=== PATIENT | male | born 1990 | race Caucasian/White ===

== ENCOUNTER 2024-03-14 09:16 | Emergency (ER) | payer OTHER, SELFPAY ==
--- NOTE | 2024-03-14 09:17 | ED.EYEPROB ---
HPI - Eye Problem General Chief complaint: Eye Problems Stated complaint: R EYE REDNESS Time Seen by Provider: 03/14/24 09:17 Source: patient Mode of arrival: ambulatory Limitations: no limitations History of Present Illness HPI Narrative: Joe is a 34-year-old male patient presenting to the clinic today with complaints right eye redness x1 day. He denies any known injury to the right eye. Denies any blurry vision. States that there stinging in the eye with some clear watering. He denies having his eyes matted shut this morning or noting any purulent discharge. No fever or chills. No URI symptoms Related Data Allergies Allergy/AdvReac Type Severity Reaction Status Date / Time No Known Allergies Allergy Mild Verified 03/14/24 09:24 Review of Systems Review of Systems: Pertinent positives per HPI. Patient denies any fever, chills, rash, headache, visual changes, dizziness, cough, runny nose, sore throat, shortness of breath, chest pain, palpitations, nausea, vomiting, diarrhea, constipation, abdominal pain, or any urinary issues. PMFSH Family History Family History Father Hypertension Mother Hypertension Cerebrovascular accident, Onset Age: 46 Family history of diabetes mellitus in first degree relative Sibling Patient's sister is in good health Grandparent Malignant neoplasm of prostate, Onset Age: 70 Diabetes mellitus Social History Social History Social History: 03/08/24 Declined [facility] Smoking status: Current every day smoker Alcohol intake: current Comments At the time of my signature, I reviewed and agree with the nursing past medical, surgical, social, and family history. There is no relevant family history pertinent to the patient complaint. Exam Narrative: General: Well-developed, well nourished, in no apparent distress Head: Normocephalic, atraumatic Eyes: Pupils equally round and reactive to light bilaterally, EOM intact, left sclera and conjunctive clear, right sclera and conjunctiva injected, no discharge, lids normal Ears: TMs intact and clear, ear canals clear, no drainage, grossly hearing normal. Nose: Nares patent, no discharge, no inflammation, no sinus tenderness. Mouth: Oropharynx without lesions or masses, good dentition, MMM. Neck: Supple, trachea midline, no enlargement of anterior or posterior cervical nodes, no thyroid masses or goiter palpable. Cardio: Regular rate and rhythm, s1 and s2 normal, no murmur appreciated. Resp: Clear to auscultation bilaterally anteriorly and posteriorly, no rhonchi, rales, wheezing or rubs Course Course Emergency Course: Portions of this record may have been created with voice recognition software. Level of Care: Express Care Visit Vital Signs Vital signs: Vital signs reviewed Procedures Other Procedure Procedure 1: Other Procedure: Two drops topical tetracaine was instilled into the right eye with good anesthesia.Fluorescein stain of the right eye was performed without uptake of dye. No epithelial defect was noted. NO FB, ulcer or dendritic lesions. Upper lid was everted and no FB or lesions were noted. NO Kerry sign. Normal saline irrigation eye solution was performed and the patient tolerated the procedure well, no adverse reaction or complications. MDM - Eye Problem MDM Narrative Medical decision making narrative: At the time of visit patient is resting comfortably on the exam table. Patient appears to be nontoxic. Procedures: Wood's lamp exam was performed and there was no sign of foreign body or corneal abrasion. Plan: I suspect patient has right eye irritation likely due to allergies. Wood's lamp exam was performed in the clinic today and there was no sign of a corneal abrasion. Will send in prescription for azelastine eyedrops. Supportive measures were discussed with the patient and
[2024-03-14 09:24] VITALS: BP 141/84; PULSE 81; RESP 18; TEMP 36.3; O2SAT 98
[2024-03-14 09:25] VITALS: BP 141/84; PULSE 81; RESP 18; TEMP 36.3; O2SAT 98
[2024-03-14] MEDS: TETRACAINE HCL 0.5% OPHTH SOLN 4 ML BTL 2 DROP RIGHT EYE (09:36)
[2024-03-14] MEDS: DACRIOSE EYE IRRIGATION 118 ML BOTTLE 10 ML RIGHT EYE (09:37)
[2024-03-14] MEDS: FLUORESCEIN SOD 1 MG/STRIP RIGHT EYE (09:37)
== END 2024-03-14 09:53 | disposition home or self-care (01) ==
PROVIDERS: Emergency Provider Nurse Practitioner Family; PCP Nurse Practitioner Family
DX: H57.11 Ocular pain, right eye (principal); F17.200 Nicotine dependence, unspecified, uncomplicated
CPT/HCPCS: 99213; A9270; G0463

== ENCOUNTER 2024-12-14 07:17 | Observation (INO) | payer OTHER, SELFPAY ==
[2024-12-14] VITALS (11 sets, daily range): BP systolic 123–153; BP diastolic 72–92; PULSE 73–91; RESP 10–20; TEMP 36.2–37.1; O2SAT 97–100; BMI 37.3
--- NOTE | ~2024-12-14 | XR_ITS ---
EXAMINATION: XR retrograde pyelo w/stent RT DATE: 12/14/2024 15:42 INDICATION: Right internal ureteral stent placement TECHNIQUE: Fluoroscopic images from a right internal ureteral stent placement are submitted for grabiel wagner 19 seconds of fluoroscopy time. FINDINGS: There is a right double-J internal ureteral stent projecting in expected position, with proximal [place] loop at the level of the renal pelvis and distal loop in the pelvis within the bladder lumen. IMPRESSION: 1. Right internal ureteral stent placement. Please refer to real-time procedural findings for detai ls. Reviewed, dictated and finalized at location A. IMPRESSION: 1. Right internal ureteral stent placement. Please refer to real-time procedu ral findings for details.
--- NOTE | ~2024-12-14 | CT_ITS ---
Non-contrast CT scan of the Abdomen and Pelvis Clinical indication: Right flank pain Technique: 2.5 mm axial scans were obtained through the abdomen and pelvis without intravenous or or al contrast. Dose reduction technique was used on this scan by utilizing automated exposure control a nd iterative reconstruction technique. The dose-length product (DLP) was 1262.77 mGy-cm. Findings: Images through the lung bases reveal no abnormalities. Small nonobstructing left renal stones measuring up to 2 mm. 4 mm stone present in the right UVJ, wit h minimal right hydroureteronephrosis. The liver, spleen, pancreas, gallbladder, and adrenals appear normal. There is no aortic aneurysm. There is no evidence of bowel obstruction. Images through the pelvis were performed. There is no evidence of ascites or lymphadenopathy. Urinary bladder unremarkable otherwise. No pelvic mass seen. Impression: 4 mm right UVJ stone with minimal right hydroureter versus. 2 mm nonobstructing left renal stones. Reviewed, dictated and finalized at [facility]. Impression: 4 mm right UVJ stone with minimal right hydroureter versus. 2 mm nonobstructing left renal stones.
--- OUTSIDE RECORDS SUMMARY | 2024-12-14 07:20 | XMS_ITS | Clinical Summary ---
Author Organization [facility] [address] Address [address] [place] [address] Care Team Providers Care Foreclosure Clerk Name Role Phone Unavailable Primary Care Provider Unavailabl e Allergies No known active allergies Medications No known medications Immunizations Immunization Administration Dates Next Due (ADACEL/BOOSTRIX)(10 YR UP) TDAP VACCINE, 0.5ML, IM 06/25/2018 Social History Tobacco Use Types Packs/Day Years Used Date Smoking Tobacco: Every Day Cigarettes Smokeless Tobacco: Never Sex and Gender Information Value Date Recorded Sex Assigned at Not on file Legal Sex Male 10:37 PM CDT Gender Identity Not on file Sexual Orientation Not on file Last Filed Vital Signs Vital Sign Reading Time Taken Comments Blood Pressure 160/68 06/25/2018 7:26 PM [employer] Pulse 113 06/25/2018 7:26 PM [employer] Temperature 36.7 C (98 F) 06/25/2018 7:26 PM [employer] Respiratory Rate 18 06/25/2018 7:26 PM [employer] Oxygen Saturation 100% 06/25/2018 7:26 PM [employer] Inhaled Oxygen Concentration - - Weight 126.1 kg (278 lb) 06/25/2018 7:26 PM [employer] Height 182.9 cm (6') 06/25/2018 7:26 PM [employer] Body Mass Index 37.7 06/25/2018 7:26 PM [employer] Plan of Treatment Health Maintenance Due Date Last Done Comments HEPATITIS B VACCINES (1 of 3 - 19+ 3-dose series) 01/10/2008 INFLUENZA VACCINE (#1) 2024 DTAP/TDAP/TD VACCINES (2 - T d or Tdap) 06/25/2028 06/25/2018 HPV VACCINES Aged Out No longer eligi ble based on patient's age to complete this topic Insurance
[2024-12-14 07:39] LABS: Basophils Absolute Auto 0.1 K/mm3 (0.0-0.1); Basophils Percent Auto 0.9 % (0.2-1.2); Eosinophils Absolute Auto 0.2 K/mm3 (0-0.3); Eosinophils Percent Auto 3.5 % (0-4.4); Hematocrit 46.6 % (42.0-52.0); Hemoglobin 16.2 g/dL (14.0-18.0); Immature Granulocyte Absolute 0.02 K/mm3 (0.00-0.031); Immature Granulocyte Percent A 0.4 % (0-0.5); Lymphocytes Percent Auto 35.3 % (18.3-44.2); Mean Corpuscular HGB Conc 34.8 g/dl (32-36); Mean Corpuscular Volume 89.3 fl (80-100); Monocytes Absolute Auto 0.6 K/mm3 (0.1-0.6); Monocytes Percent Auto 10.2 % (2.6-8.5); Neutrophils Absolute Auto 2.8 K/mm3 (1.3-6.7); Neutrophils Percent Auto 49.7 % (45.5-73.1); Platelet Count Result 257 k/mm3 (150-375); Red Blood Count 5.22 M/mm3 (4.6-6.20); Red Cell Distribution Width 13.3 % (11.5-14.5); White Blood Count 5.7 K/mm3 (4.5-10.0)
[2024-12-14 07:44] LABS: Add Urine Microscopic? YES; Appearance Urine Turbid (Clear); Bacteria Urine None Seen /hpf; Bilirubin Urine Negative (Negative); Blood Urine Negative (Negative); Color Urine Yellow (Yellow); Glucose Urine UA Negative (Negative); Ketones Urine Negative (Negative); Leukocyte Esterase Ur Negative LEU/UL (Negative); Nitrate Urine Negative (Negative); Non Pathogenic Casts 0-2; Protein Urine Negative (Negative); RBC Urine 0-2 /hpf (0-2); Specific Grav Ur 1.019 (1.001-1.035); Squamous Epithelial Cell Urine None Seen /hpf (Few); Urobilinogen Urine 0.2 mg/dL (<2.0); WBC Urine 0-5 /hpf (0-3)
[2024-12-14 07:50] LABS: Alanine Aminotransferase 42 U/L (6-50); Albumin Level 4.6 g/dL (3.5-5.1); Alkaline Phosphatase 53 U/L (38-126); Anion Gap 8 mmol/L (4-12); Aspartate Amino Transferase 29 U/L (17-59); Bilirubin,Total 0.5 mg/dL (0.2-1.3); Blood Urea Nitrogen 15 mg/dL (9-20); Calcium 9.6 mg/dL (8.4-10.2); Carbon Dioxide 28 mmol/L (22-30); Chloride 105 mmol/L (98-107); Estimated CRCL calculation 147 ml/min; Estimated Glomerular Filt Rate > 60; Glucose 114 mg/dL (65-110); Potassium 3.8 mmol/L (3.4-5.0); Sodium 141 mmol/L (137-145)
[2024-12-14] MEDS: MORPHINE SULFATE (*CRX) 4 MG/ML INJ IV PUSH (07:58)
[2024-12-14] MEDS: ONDANSETRON INJ 4 MG/2 ML VIAL IV PUSH (07:59)
[2024-12-14] MEDS: KETOROLAC 15 MG/ML VIAL (*BKC) IV PUSH ×2 (08:17→11:21)
--- OUTSIDE RECORDS SUMMARY | 2024-12-14 08:39 | XMS_ITS | Clinical Summary ---
Author Organization [employer] [facility] Address [address] [place] [address] Care Team Providers Care Director Pharmaceutical Name Role Phone Unavailable Primary Care Provider [...] Comments Blood Pressure 160/68 06/25/2018 7:26 PM GEOLOGIST Pulse 113 06/25/2018 7:26 PM GEOLOGIST Temperature 36.7 C (98 F) 06/25/2018 7:26 PM GEOLOGIST Respiratory Rate 18 06/25/2018 7:26 PM GEOLOGIST Oxygen Saturation 100% 06/25/2018 7:26 PM GEOLOGIST Inhaled Oxygen Concentration - - Weight 126.1 kg (278 lb) 06/25/2018 7:26 PM GEOLOGIST Height 182.9 cm (6') 06/25/2018 7:26 PM GEOLOGIST Body Mass Index 37.7 06/25/2018 7:26 PM GEOLOGIST Plan of Treatment Health Maintenance Due Date Last Done Comments HEPATITIS B VACCINES (1 of 3 - 19+ 3-dose series) 01/10/2008 INFLUENZA VACCINE (#1) 2024 DTAP/TDAP/TD VACCINES (2 - T d or Tdap) 06/25/2028 06/25/2018 HPV VACCINES Aged Out No longer eligi ble based on patient's age to complete this topic Insurance
[2024-12-14] MEDS: HYDROmorphone HCL INJ (*CRX) 2 MG/ML VIAL 0.5 MG IV PUSH ×2 (09:03→12:30)
[2024-12-14] MEDS: LACTATED RINGERS 1,000 ML 999 ML IV CONT (09:03)
--- NOTE | 2024-12-14 09:14 | PC.NURSE ---
patient ambulated to the bathroom at this time
--- NOTE | 2024-12-14 09:29 | ED.ABDPAIN ---
HPI - Abdominal Pain General Chief Complaint: Abdominal Pain Stated Complaint: R FLANK/ABD PAIN X1 HOUR Time Seen by Provider: 12/14/24 07:32 History of Present Illness HPI narrative: Dependent hour prior to arrival here, patient started having sudden severe right flank pain radiating down his right groin, associated nausea. No history of this in the past, has never had kidney stones before. Pain much worse with urination. Related Data Allergies Allergy/AdvReac Type Severity Reaction Status Date / Time No Known Allergies Allergy Mild Verified 12/14/24 07:18 Review of Systems Review of Systems: All systems reviewed & are unremarkable except as noted in HPI and below PMFSH Family History Family History Father Hypertension Mother Hypertension Cerebrovascular accident, Onset Age: 46 Family history of diabetes mellitus in first degree relative Sibling Patient's sister is in good health Grandparent Malignant neoplasm of prostate, Onset Age: 70 Diabetes mellitus Social History Social History Social History: 06/04/24 very confident with medical forms Smoking status: Current every day smoker Alcohol intake: current Do You Feel Safe in your Home?: Yes Lack of Transportation: No Lack of Food: Never True Current Housing: I Have Housing Concerned About Future Housing: No Difficulty Paying Gas/Electric Bills: No Difficulty Paying for Meds: No Currently Unemployed: No Education: Associate Degree Difficulty w/ Childcare or Family Care: No Exam Narrative: EXAMINATION OF ORGAN SYSTEMS/BODY AREAS: Constitutional: Vital signs per nursing GENERAL: Appears quite comfortable HEAD: Normal with no signs of head trauma. EYES: EOMI, conjunctiva normal ENT: Hearing grossly intact LUNGS: Nonlabored breathing. HEART: [Regular rate and rhythm] ABD: [Soft], slightly tender to palpation right flank to groin : No swelling or tenderness or tightness to the right scrotum/testicle, not high riding EXT: Normal range of motion SKIN: [No rashes or lesions.] NEURO: [Alert and oriented x 3. No gross focal sensory or strength deficits.] PSYCH: Normal affect Course Vital Signs Vital signs: Vital Signs Temperature 97.5 F L 12/14/24 07:25 Pulse Rate 81 12/14/24 07:25 Respiratory Rate 20 12/14/24 07:25 Blood Pressure 140/92 H 12/14/24 07:25 Pulse Oximetry 99 12/14/24 07:25 Oxygen Delivery Room Air 12/14/24 07:25 Temperature 97.5 F L 12/14/24 07:25 Pulse Rate 81 12/14/24 07:25 Respiratory Rate 20 12/14/24 07:25 Blood Pressure 140/92 H 12/14/24 07:25 Pulse Oximetry 99 12/14/24 07:25 Oxygen Delivery Room Air 12/14/24 07:25 MDM - Abdominal Pain MDM Narrative Medical decision making narrative: ED COURSE AND MEDICAL DECISION MAKINM presenting to the emergency department for acute flank pain, symptoms are concerning for likely renal colic; I did also consider possible testicular torsion however the pain is mostly groin and not testicle, and on exam, his right testicle is not tender, high riding, tense, swollen, no absent cremasteric reflex. Urinalysis is ordered. [Morphine 4 mg, Zofran 4mg] are ordered. CT scan of the abdomen/pelvis is ordered. CT scan of the abdomen/pelvis is reviewed by myself and interpreted by radiology: 4 mm right UVJ stone. On reevaluation, the patient still having significant pain. I did try Toradol, and Dilaudid, he is still having significant pain discussed with urologist who has evaluated the patient at bedside and recommends admission for OR Patient updated on plan. Lab Data 12/14/24 07:29 12/14/24 07:29 Labs: Lab Results 12/14/24 Range/Units 07:29 WBC 5.7 (4.5-10.0) K/mm3 RBC 5.22 (4.6-6.20) M/mm3 Hgb 16.2 (14.0-18.0) g/dL Hct 46.6 (42.0-52.0) % MCV 89.3 (80-100) fl MCH 31.0 (26-34) pg MCHC 34.8 (32-36) g/dl RDW 13.3 (11.5-14.5) % Plt Count 257 (150-375) k/mm3 MPV 9.0 (7.4-10.4) fl Immature Gran % (Auto) 0.4 (0-0.5) % Neut % (Auto) 49.7 (45.5-73.1) % Lymph % (Auto) 35.3 (18.3-44.2) % [place] % (Auto) 10.2 H (2.6-8.5) % Eos % (Auto) 3.5 (0-4.4) % Baso % (Auto) 0.9 (0.2-1.2) % Lymph # (Auto) 2.00 (0.9-3.2) K/mm3 [place] # (Auto) 0.6 (0.1-0.6) K/mm3 Eos # (Auto) 0.2 (0-0.3) K/mm3 Baso # (Auto) 0.1 (0.0-0.1) K/mm3 Abs Immat Gran (auto) 0.02 (0.00-0.031) K/mm3 Absolute Neuts (auto) 2.8 (1.3-6.7) K/mm3 Absolute Nucleated RBC 0.000 (0.0-0.012) K/mm3 Nucleated RBC % 0.0 (0.0-0.2) % Sodium 141 (137-145) mmol/L Potassium 3.8 (3.4-5.0) mmol/L Chloride 105 (98-107) mmol/L Carbon Dioxide 28 (22-30) mmol/L Anion Gap 8 (4-12) mmol/L BUN 15 (9-20) mg/dL Creatinine 0.81 (0.7-1.3) mg/dL Estim Creat Clear Calc 147 ml/min Estimated GFR > 60 (59 - ) Glucose 114 H (65-110) mg/dL Calcium 9.6 (8.4-10.2) mg/dL Total Bilirubin 0.5 (0.2-1.3) mg/dL AST 29 (17-59) U/L ALT 42 (6-50) U/L Alkaline Phosphatase 53 (38-126) U/L Total Protein 7.0 (6.3-8.2) g/dL Albumin 4.6 (3.5-5.1) g/dL Urine Color Yellow (Yellow) Urine Appearance Turbid H (Clear) Urine pH 8.0 (5.0-9.0) Ur Specific [place] 1.019 (1.001-1.035) Urine Protein Negative (Negative) mg/dL Urine Glucose (UA) Negative (Negative) mg/dL Urine Ketones Negative (Negative) mg/dL Ur Blood (Man) Negative (Negative) Urine Nitrate Negative (Negative) Urine Bilirubin Negative (Negative) Urine Urobilinogen 0.2 (<2.0) mg/dL Leukocyte Esterase Rfl Negative (Negative) BEBETO/UL Urine RBC 0-2 (0-2) /hpf Urine WBC 0-5 (0-3) /hpf Ur Squamous Epith Cells None seen (Few) /hpf Urine Bacteria None seen /hpf Urine Casts 0-2 Imaging Data Radiologist's impression: ITS Impressions Abdomen/Pelvis CT 12/14/24 07:58 Impression: 4 mm right UVJ stone with minimal right hydroureter versus. 2 mm nonobstructing left renal stones. Discharge Plan Discharge Clinical Impression: Right ureteral calculus Patient Disposition: Still a Patient Condition: Stable
--- NOTE | 2024-12-14 09:51 | WPDURCON ---
Assessment and Plan Assessment and plan (1) Right ureteral calculus: Code(s): N20.1 - Calculus of ureter Status: Acute Assessment and Plan: Given his pain issues will proceed with cystoscopy, right retrograde, right ureteroscopy with stone extraction, possible laser stent placement later this afternoon. Urology Consult Note HPI Date Seen: 12/14/24 Time Seen: 09:00 Requesting Physician: Wyatt Tidwell MD Primary Care Provider: DOMINIQUE Rodriguez Consult Narrative Reason for consult: 4 mm right UVJ calculus Narrative: Joe Porter is a 34 year old male presented the emergency room with right renal colic. CT scan reveals a 4 mm right UVJ stone. He they were unable to control his pain adequately. He is being admitted for IV fluids. Will proceed to the operating room later this afternoon if does not pass the stone. Review of Systems Review of Systems: All systems reviewed & are unremarkable except as noted in HPI and below PMFSH Family History Family History Father Hypertension Mother Hypertension Cerebrovascular accident, Onset Age: 46 Family history of diabetes mellitus in first degree relative Sibling Patient's sister is in good health Grandparent Malignant neoplasm of prostate, Onset Age: 70 Diabetes mellitus Social History Social History Social History: 06/04/24 very confident with medical forms Smoking status: Current every day smoker Alcohol intake: current Do You Feel Safe in your Home?: Yes Lack of Transportation: No Lack of Food: Never True Current Housing: I Have Housing Concerned About Future Housing: No Difficulty Paying Gas/Electric Bills: No Difficulty Paying for Meds: No Currently Unemployed: No Education: Associate Degree Difficulty w/ Childcare or Family Care: No Meds Home Medications and Allergies Home Medications ?Medication ?Instructions ?Recorded ?Confirmed ?Type albuterol sulfate 90 mcg/actuation 2 inh inhalation Q4H PRN shortness 12/15/23 08/24/24 Rx aerosol inhaler of breath or wheezing #8.5 grams oseltamivir 75 mg capsule (Tamiflu) 75 mg PO DAILY #10 caps 09/10/24 Rx dextroamphetamine-amphetamine 10 10 mg PO .in evening PRN ADHD #30 12/07/24 Rx mg tablet (Adderall) tabs dextroamphetamine-amphetamine ER 20 mg PO DAILY #30 caps 12/07/24 Rx 20 mg 24hr capsule,extend release (Adderall XR) Allergies Allergy/AdvReac Type Severity Reaction Status Date / Time No Known Allergies Allergy Mild Verified 12/14/24 07:18 Vital Signs Vital Signs - 24 hr 12/14/24 07:25 Temperature 36.4 C L Pulse Rate 81 Respiratory Rate 20 Blood Pressure 140/92 H Pulse Oximetry 99 Oxygen Delivery Room Air Exam Const: General: cooperative; No comfortable Resp: Effort & Inspection: normal respiratory effort Cardio: Rate: regular rate Rhythm: regular rhythm Results Labs 12/14/24 07:29 12/14/24 07:29 Labs: Short CBC 12/14/24 Range/Units 07:29 WBC 5.7 (4.5-10.0) K/mm3 Hgb 16.2 (14.0-18.0) g/dL Hct 46.6 (42.0-52.0) % Plt Count 257 (150-375) k/mm3 BMP 12/14/24 07:29 Sodium 141 Potassium 3.8 Chloride 105 Carbon Dioxide 28 BUN 15 Creatinine 0.81 Glucose 114 H Calcium 9.6 Liver Function 12/14/24 Range/Units 07:29 Total Bilirubin 0.5 (0.2-1.3) mg/dL AST 29 (17-59) U/L ALT 42 (6-50) U/L Alkaline Phosphatase 53 (38-126) U/L Albumin 4.6 (3.5-5.1) g/dL Urine 12/14/24 Range/Units 07:29 Urine Color Yellow (Yellow) Urine Appearance Turbid H (Clear) Urine pH 8.0 (5.0-9.0) Ur Specific [place] 1.019 (1.001-1.035) Urine Protein Negative (Negative) mg/dL Urine Glucose (UA) Negative (Negative) mg/dL
--- NOTE | 2024-12-14 10:44 | ADMGEN ---
This patient, Joe Porter, was admitted to [facility] Surg Room 331-01. Patient/family oriented to hospital policies and general routines including ID bracelet, bed and alarms, visiting hours, pain management, procedures, bathroom and other care routines, personal items, smoking policy, room service/diet, and visiting hours. Information on how to activate the Rapid Response Team has been discussed. Patient/Family are encouraged to report perceived risks to care and to ask questions if they do not understand what they are told or what they should do.
[2024-12-14] MEDS: MORPHINE SULFATE (*CRX) 2 MG/ML INJ IV PUSH (13:09)
--- NOTE | 2024-12-14 13:14 | PM.IMHP ---
H&P: HPI History of Present Illness Date/Time: 12/14/24 13:14 Chief Complaint: Flank Pain Narrative: 34 y/o M with PMH of ADHD presents here with flank pain. The patient presents here from home on 12/14 for further evaluation of right flank pain. He reports sudden onset this morning around 6:30 a.m.. He describes the pain as sharp, radiation into his right groin, constant, and pain exacerbated by urination. He reports associated nausea and diaphoresis. He denies any previous history of kidney stones. Denies fever or chills. Initial VS at presentation: 97.5? F, HR 81, R 20, 140/92, and 99% on RA. ED workup showed: No leukocytosis, no anemia, no significant electrolyte derangements, renal function within normal limits, UA had a turbid appearance otherwise unremarkable. CT of the abdomen/pelvis showed 4 mm right UVJ stone with minimal right hydroureter versus, 2 mm nonobstructing left renal stones. Review of Systems Review of Systems: All systems reviewed & are unremarkable except as noted in HPI and below PMFSH Past Medical History Medical History Kidney stones First occurrence on 12/14/2024 Smoker ADHD Asthma Family History Family History Father Hypertension Mother Hypertension Cerebrovascular accident, Onset Age: 46 Family history of diabetes mellitus in first degree relative Sibling Patient's sister is in good health Grandparent Malignant neoplasm of prostate, Onset Age: 70 Diabetes mellitus Social History Social History Social History: 06/04/24 very confident with medical forms Smoking status: Current every day smoker Alcohol intake: current Substance use: never Substance use type: does not use Do You Feel Safe in your Home?: Yes Lack of Transportation: No Lack of Food: Never True Current Housing: I Have Housing Concerned About Future Housing: No Difficulty Paying Gas/Electric Bills: No Difficulty Paying for Meds: No Currently Unemployed: No Education: Associate Degree Difficulty w/ Childcare or Family Care: No Spiritual care concerns: No Meds Home Medications and Allergies Home Medications ?Medication ?Instructions ?Recorded ?Confirmed ?Type albuterol sulfate 90 mcg/actuation 2 inh inhalation Q4H PRN shortness 12/15/23 12/14/24 Rx aerosol inhaler of breath or wheezing #8.5 grams dextroamphetamine-amphetamine 10 10 mg PO .in evening PRN ADHD #30 12/07/24 12/14/24 Rx mg tablet (Adderall) tabs dextroamphetamine-amphetamine ER 20 mg PO DAILY #30 caps 12/07/24 12/14/24 Rx 20 mg 24hr capsule,extend release (Adderall XR) tramadol 50 mg tablet 50 mg PO Q6H PRN pain #20 tabs 12/14/24 Rx Allergies Allergy/AdvReac Type Severity Reaction Status Date / Time No Known Allergies Allergy Mild Verified 12/14/24 15:31 Vital Signs Vital Signs - 24 hr 12/14/24 07:25 12/14/24 10:45 Temperature 97.5 F L 97.9 F Pulse Rate 81 79 Respiratory Rate 20 16 Blood Pressure 140/92 H 153/88 H Pulse Oximetry 99 99 Oxygen Delivery Room Air H&P: Results Labs Labs: Short CBC 12/14/24 Range/Units 07:29 WBC 5.7 (4.5-10.0) K/mm3 Hgb 16.2 (14.0-18.0) g/dL Hct 46.6 (42.0-52.0) % Plt Count 257 (150-375) k/mm3 BMP 12/14/24 07:29 Sodium 141 Potassium 3.8 Chloride 105 Carbon Dioxide 28 BUN 15 Creatinine 0.81 Glucose 114 H Calcium 9.6 Liver Function 12/14/24 Range/Units 07:29 Total Bilirubin 0.5 (0.2-1.3) mg/dL AST 29 (17-59) U/L ALT 42 (6-50) U/L Alkaline Phosphatase 53 (38-126) U/L Albumin 4.6 (3.5-5.1) g/dL Urine 12/14/24 Range/Units 07:29 Urine Color Yellow (Yellow) Urine Appearance Turbid H (Clear) Urine pH 8.0 (5.0-9.0) Ur Specific [place] 1.019 (1.001-1.035) Urine Protein Negative (Negative) mg/dL Urine Glucose (UA) Negative (Negative) mg/dL Assessment and Plan Assessment and plan (1) Right ureteral calculus: Code(s): N20.1 - Calculus of ureter Status: Acute Assessment and Plan: - CT abd/pelvis: 4 mm right UVJ stone with minimal right hydroureter versus. 2 mm nonobstructing left renal stones. - urology consulted, Trupti CORTEZ. provided the following recs: Cystoscopy, right retrograde, right ureteroscopy with stone obstruction, possible laser stent placement - pain control - IV fluids: 1 L bolus, 100 mL/hour x1 L of LR - antiemetics p.r.n. - follow WBC and renal function (2) Asthma: Qualifiers: Asthma complication type: uncomplicated Asthma persistence: intermittent Asthma severity: mild Qualified Code(s): J45.20 - Mild intermittent asthma, uncomplicated Code(s): J45.909 - Unspecified asthma, uncomplicated Status: Chronic Assessment and Plan: - albuterol PRN (3) ADHD: Qualifiers: Attention deficit-hyperactivity disorder type: combined inattentive-hyperactive Qualified Code(s): F90.2 - Attention-deficit hyperactivity disorder, combined type Code(s): F90.9 - Attention-deficit hyperactivity disorder, unspecified type Status: Chronic Assessment and Plan: - hold Adderall while inpatient (4) Smoker: Code(s): F17.200 - Nicotine dependence, unspecified, uncomplicated Status: Chronic Assessment and Plan: - 0.5 PPD x 20+ years - nicotine patch prn Plan Diet: NPO except ice chips GI Prophylaxis: Not currently indicated DVT Prophylaxis: SCDs IV fluids: 1L bolus, LR at 100 mL/hr x1L Lines/Tubes: Peripheral IV Code Status: Full code Quality VTE Prophylaxis VTE prophylaxis: mechanical ordered Hospitalist [facility] Advance Care Plan I have confirmed that the patient's Advanced Care Plan is present, code status is documented, or surrogate decision maker is listed in patient medical record.: Yes Medication Reconciliation I have utilized all available resources to obtain, update and review the patients current medications (includes all prescriptions, OTC, herbals, cannabis, and nutritional supplements).: Yes
[2024-12-14] MEDS: HYDROmorphone HCL INJ (*CRX) 2 MG/ML VIAL 1 MG IV PUSH (13:38)
[2024-12-14] MEDS: LACTATED RINGERS 1,000 ML 100 ML IV CONT (13:40)
[2024-12-14] MEDS: LACTATED RINGERS 1,000 ML 30 ML IV CONT (15:00)
[2024-12-14] MEDS: fentaNYL CITRATE INJ (*CRX) 100 MCG/2 ML VIAL 50 MCG IV PUSH (15:00)
--- NOTE | 2024-12-14 15:05 | WPDANESEPPF ---
Anes - Initial Pre Proc Eval Procedure: Operation Date: 12/14/24 16:00 Proposed Procedures p Cystoscopy, Right Ureteroscopy, Possible Right Retrograde Pyelogram, Possible Right Stone Extraction, Possible Right Stent Placement, Possible Holmium Laser - Olvin Lyles MD Date/Time: 12/14/24 15:05 Surgeon: Wyatt Tidwell MD Pre Op Diagnosis: R UVJ stone Patient Data Age: 34 Gender: M Height: 1.8 m Weight: 121.6 kg Last Vital Signs Temp 36.6 C 12/14/24 10:45 Pulse 79 12/14/24 10:45 Resp 16 12/14/24 10:45 BP 153/88 H 12/14/24 10:45 Pulse Ox 99 12/14/24 10:45 O2 Del Method Room Air 12/14/24 07:25 Allergies Allergy/AdvReac Type Severity Reaction Status Date / Time No Known Allergies Allergy Mild Verified 12/14/24 07:18 Home Medications ?Medication ?Instructions ?Recorded ?Confirmed ?Type albuterol sulfate 90 mcg/actuation 2 inh inhalation Q4H PRN shortness 12/15/23 12/14/24 Rx aerosol inhaler of breath or wheezing #8.5 grams dextroamphetamine-amphetamine 10 10 mg PO .in evening PRN ADHD #30 12/07/24 12/14/24 Rx mg tablet (Adderall) tabs dextroamphetamine-amphetamine ER 20 mg PO DAILY #30 caps 12/07/24 12/14/24 Rx 20 mg 24hr capsule,extend release (Adderall XR) Laboratory Tests 12/14/24 07:29 WBC 5.7 K/mm3 (4.5-10.0) RBC 5.22 M/mm3 (4.6-6.20) Hgb 16.2 g/dL (14.0-18.0) Hct 46.6 % (42.0-52.0) MCV 89.3 fl (80-100) MCH 31.0 pg (26-34) MCHC 34.8 g/dl (32-36) RDW 13.3 % (11.5-14.5) Plt Count 257 k/mm3 (150-375) MPV 9.0 fl (7.4-10.4) Immature Gran % (Auto) 0.4 % (0-0.5) Neut % (Auto) 49.7 % (45.5-73.1) Lymph % (Auto) 35.3 % (18.3-44.2) [place] % (Auto) 10.2 H % (2.6-8.5) Eos % (Auto) 3.5 % (0-4.4) Baso % (Auto) 0.9 % (0.2-1.2) Lymph # (Auto) 2.00 K/mm3 (0.9-3.2) [place] # (Auto) 0.6 K/mm3 (0.1-0.6) Eos # (Auto) 0.2 K/mm3 (0-0.3) Baso # (Auto) 0.1 K/mm3 (0.0-0.1) Abs Immat Gran (auto) 0.02 K/mm3 (0.00-0.031) Absolute Neuts (auto) 2.8 K/mm3 (1.3-6.7) Absolute Nucleated RBC 0.000 K/mm3 (0.0-0.012) Nucleated RBC % 0.0 % (0.0-0.2) Sodium 141 mmol/L (137-145) Potassium 3.8 mmol/L (3.4-5.0) Chloride 105 mmol/L (98-107) Carbon Dioxide 28 mmol/L (22-30) Anion Gap 8 mmol/L (4-12) BUN 15 mg/dL (9-20) Creatinine 0.81 mg/dL (0.7-1.3) Estim Creat Clear Calc 147 ml/min Estimated GFR > 60 (59 - ) Glucose 114 H mg/dL (65-110) Calcium 9.6 mg/dL (8.4-10.2) Total Bilirubin 0.5 mg/dL (0.2-1.3) AST 29 U/L (17-59) ALT 42 U/L (6-50) Alkaline Phosphatase 53 U/L (38-126) Total Protein 7.0 g/dL (6.3-8.2) Albumin 4.6 g/dL (3.5-5.1) Urine Color Yellow (Yellow) Urine Appearance Turbid H (Clear) Urine pH 8.0 (5.0-9.0) Ur Specific [place] 1.019 (1.001-1.035) Urine Protein Negative mg/dL (Negative) Urine Glucose (UA) Negative mg/dL (Negative) Urine Ketones Negative mg/dL (Negative) Ur Blood (Man) Negative (Negative) Urine Nitrate Negative (Negative) Urine Bilirubin Negative (Negative) Urine Urobilinogen 0.2 mg/dL (<2.0) Leukocyte Esterase Rfl Negative BEBETO/UL (Negative) Urine RBC 0-2 /hpf (0-2) Urine WBC 0-5 /hpf (0-3) Ur Squamous Epith Cells None seen /hpf (Few) Urine Bacteria None seen /hpf Urine Casts 0-2 Patient hx anesthesia problems: none Family hx anesthesia problems: none Results Review: All pre-operative results and documents have been reviewed as part of the pre-operative evaluation. FORMERLY [facility], [facility] Past Medical History Medical History Kidney stones First occurrence on 12/14/2024 Smoker ADHD Asthma Family History Family History Father Hypertension Mother Hypertension Cerebrovascular accident, Onset Age: 46 Family history of diabetes mellitus in first degree relative Sibling Patient's sister is in good health Grandparent Malignant neoplasm of prostate, Onset Age: 70 Diabetes mellitus Social History Social History Social History: 06/04/24 very confident with medical forms Smoking status: Current every day smoker Alcohol intake: current Do You Feel Safe in your Home?: Yes Lack of Transportation: No Lack of Food: Never True Current Housing: I Have Housing Concerned About Future Housing: No Difficulty Paying Gas/Electric Bills: No Difficulty Paying for Meds: No Currently Unemployed: No Education: Associate Degree Difficulty w/ Childcare or Family Care: No Anes - Eval Final PreProcedure Day of Procedure 12/14/24 15:05 Patient weight: obese Heart: regular rate and rhythm Lungs: clear to auscultation Airway: Mallampati scale class 1 Neurological: alert and oriented Last oral intake: >/= 8 hours ASA classification: III Emergent: no Anesthetic plan: proceed Anesthesia type and monitoring: general LMA and standard monitoring Results Review: All pre-operative results and documents have been reviewed as part of the pre-operative evaluation. Informed Consent: The patient's anesthetic plan and its attendant risks and benefits were discussed with the patient/family/POA. Questions were solicited and answers provided to the satisfaction of the patient/family/POA.
--- NOTE | 2024-12-14 15:10 | WPDHPUPDATE1 ---
History and Physical Update Update Date/Time: 12/14/24 15:10 History and Physical has been reviewed, including an updated exam of the patient. There are NO changes in the patient's condition. Risks, benefits, and alternatives have been discussed and questions answered. Patient agrees to proceed with procedure.
[2024-12-14] MEDS: ceFAZolin SODIUM 1 GM VIAL 3 GM IV PUSH (15:25)
[2024-12-14] MEDS: LIDOCAINE 2% JELLY 5 ML TUBE 1 APPLIC MUCOUS MEM (15:26)
[2024-12-14] MEDS: ceFAZolin 1 GM/NS 50 ML 1 GM/50 ML BAG IVPB (15:32)
--- NOTE | 2024-12-14 15:35 | S_PTH ---
PATIENT: Joe Porter LOC: [id number] U#:[id number] AGE/SX: 34/M ROOM: 331 RE12/14/[address]: Wyatt Tidwell MD : 1990 BED: 01 DIS: 12/14/2024 SPEC #: [id number] RECD: 12/15/24 09:54 STATUS: LUISA REEdel #: [id number] DARRON: 12/14/24 15:[address]: Trupti,Olvin Ellison DEPT: [facility] Surgical RECD BY: Belkis Smalls ENTERED: 12/15/24 09:54 SP TYPE: Surgical OTHR DR: MD Marguerite Enriquez APRN Prashanth Jayaraj, MD Alyssa R. Loepker, APRN James S. Powell, MD Benjamin M. Wisotsky, Tissues: A - Stone Procedures: Gross Exam Level 1 Crystalline Analysis
--- NOTE | 2024-12-14 15:38 | P.OP_ITS ---
Procedure Note - Detailed Date of Procedure 12/14/24 Pre-op Diagnosis R UVJ stone-5 mm Post-op Diagnosis Same Procedure Performed Cystoscopy, right retrograde, right ureteroscopy with stone extraction, right stent placement 4.8 [place]e contour Surgeon Olvin Lyles MD Anesthesia General Description of Procedure Patient was taken to the operative suite correctly identified. Once anesthesia was obtained was placed in dorsal lithotomy position and prepped and draped usual sterile fashion. Twenty-two [place]e scope was inserted to the urethra. The bladder is without any evidence of tumors. The right ureteral stone is . I was able to manipulate a wire into the orifice. I dilated with an 8/10 dilator. Rigid ureteral scope was then inserted. The stone was visualized. I was able to retrieve it in 1 send escape basket. Reinspection revealed no residual stone. Pyelogram was then performed to confirm placement of the stent. 4.8 [place]e contour stent was then placed with the proximal end coiled in the renal pelvis and the distal end in the bladder. Patient is taken recovery stable condition after 2% viscous lidocaine was inserted into the urethra. Patient can be discharged home later today in follow-up in a week's time for stent removal in the office. This completes dictation. Please send a copy of op note to my office. Estimated Blood Loss 0 Drains Yes Packing No Pathology Yes Complications No immediate complications Condition Stable Disposition PACU
[2024-12-14] MEDS: ACETAMINOPHEN 325 MG TABLET 650 MG PO (17:24)
--- NOTE | 2024-12-14 19:27 | P.SS_ITS ---
Same Day Admit/Disch: HPI History of Present Illness Chief complaint: R UVJ stone Narrative: 34 y/o M with PMH of ADHD presents here with flank pain. The patient presents here from home on 12/14 for further evaluation of right flank pain.? He reports sudden onset this morning around 6:30 a.m..? He de scribes the pain as sharp, radiation into his right groin, constant, and pain exacerbated by urination.? He reports associated nausea and diaphoresis.? He denies any previous history of kidney stones. Denies fever or chills. Initial VS at presentation:? 97.5? F, HR 81, R 20, 140/92, and 99% on RA. ED workup showed:? No leukocytosis, no anemia, no significant electrolyte derangements, renal function within normal limits, UA had a turbid appearance otherwise unremarkable.? CT of the abdomen/pelvis showed 4 mm right UVJ stone with minimal right hydroureter versus, 2 mm nonobstructing left renal stones. [facility] Past Medical History Medical History Kidney stones First occurrence on 12/14/2024 Smoker ADHD Asthma Family History Family History Father Hypertension Mother Hypertension Cerebrovascular accident, Onset Age: 46 Family history of diabetes mellitus in first degree relative Sibling Patient's sister is in good health Grandparent Malignant neoplasm of prostate, Onset Age: 70 Diabetes mellitus Social History Social History Social History: 06/04/24 very confident with medical forms Smoking status: Current every day smoker Alcohol intake: current Substance use: never Substance use type: does not use Do You Feel Safe in your Home?: Yes Lack of Transportation: No Lack of Food: Never True Current Housing: I Have Housing Concerned About Future Housing: No Difficulty Paying Gas/Electric Bills: No Difficulty Paying for Meds: No Currently Unemployed: No Education: Associate Degree Difficulty w/ Childcare or Family Care: No Spiritual care concerns: No Same Day Admit/Disch: Med Pre-admit Medications Home Medications ?Medication ?Instructions ?Recorded ?Confirmed ?Type albuterol sulfate 90 mcg/actuation 2 inh inhalation Q4H PRN shortness 12/15/23 12/14/24 Rx aerosol inhaler of breath or wheezing #8.5 grams dextroamphetamine-amphetamine 10 10 mg PO .in evening PRN ADHD #30 12/07/24 12/14/24 Rx mg tablet (Adderall) tabs dextroamphetamine-amphetamine ER 20 mg PO DAILY #30 caps 12/07/24 12/14/24 Rx 20 mg 24hr capsule,extend release (Adderall XR) tramadol 50 mg tablet 50 mg PO Q6H PRN pain #20 tabs 12/14/24 Rx Review of Systems Review of Systems All systems reviewed & are unremarkable except as noted in HPI and below Exam Const: General: cooperative, healthy appearing and comfortable Nutritional Appearance: average body habitus Orientation/consciousness: oriented to person, oriented to place and oriented to time Limitations: no limitations HENMT: Head: normal to inspection Ears: hearing grossly normal bilaterally Face/Nose/Sinus: Normal external nose present Face and sinus: normal facial exam Eyes: General: appearance normal, both eyes and all related structures Eyelids: eyelids normal Conjunctivae: conjunctivae normal Sclera: sclerae normal Pupils: Equal, round and reactive pupils present EOM: EOMs intact bilaterally Neck: Neck: normal visual inspection Chest: Chest palpation & inspection: normal inspection of the chest Resp: Effort & Inspection: normal respiratory effort and able to speak in complete sentences Auscultation: clear to auscultation bilaterally Cardio: Rate: regular rate Rhythm: regular rhythm Heart sounds: S1 normal heart sound present and S2 normal heart sound present GI: Inspection: normal to inspection GI Palp: Yes abdominal tenderness (Mild near right groin/right lower abdomen) Auscultation: normal bowel sounds Skin: General skin exam: normal color and no rashes or lesions noted Wounds: no wounds Neuro: General: oriented to person, oriented to place and oriented to time Cognition (Neuro): normal cognition Speech: normal speech Motor exam (neuro): 5/5 motor strength present throughout Sensory Exam: normal sensation Extrem: General: normal to inspection Psych: Appearance: grossly normal Mental Status: mental status grossly normal Speech and movement: Normal speech and movement present Affect: normal affect Attitude: cooperative DS: Data Data Completed and Pending Pending studies at discharge: Pending at discharge 12/14/24 15:35 Surgical [PTH] Routine Labs on day of discharge: Labs from last 24 hours 12/14/24 07:29 WBC 5.7 RBC 5.22 Hgb 16.2 Hct 46.6 MCV 89.3 MCH 31.0 MCHC 34.8 RDW 13.3 Plt Count 257 MPV 9.0 Immature Gran % (Auto) 0.4 Neut % (Auto) 49.7 Lymph % (Auto) 35.3 [place] % (Auto) 10.2 H Eos % (Auto) 3.5 Baso % (Auto) 0.9 Lymph # (Auto) 2.00 [place] # (Auto) 0.6 Eos # (Auto) 0.2 Baso # (Auto) 0.1 Abs Immat Gran (auto) 0.02 Absolute Neuts (auto) 2.8 Absolute Nucleated RBC 0.000 Nucleated RBC % 0.0 Sodium 141 Potassium 3.8 Chloride 105 Carbon Dioxide 28 Anion Gap 8 BUN 15 Creatinine 0.81 Estim Creat Clear Calc 147 Estimated GFR > 60 Glucose 114 H Calcium 9.6 Total Bilirubin 0.5 AST 29 ALT 42 Alkaline Phosphatase 53 Total Protein 7.0 Albumin 4.6 Urine Color Yellow Urine Appearance Turbid H Urine pH 8.0 Ur Specific [place] 1.019 Urine Protein Negative Urine Glucose (UA) Negative Urine Ketones Negative Ur Blood (Man) Negative Urine Nitrate Negative Urine Bilirubin Negative Urine Urobilinogen 0.2 Leukocyte Esterase Rfl Negative Urine RBC 0-2 Urine WBC 0-5 Ur Squamous Epith Cells None seen Urine Bacteria None seen Urine Casts 0-2 Procedures/Treatments: Underwent a cystoscopy, right retrograde, right your atrophy with stone extraction, right stent placement with 4.8 [place] contour with [place] on 12/14 Imaging Radiologist's impression: CT abdomen/pelvis, radiologist impression: 4 mm right UVJ stone with minimal right hydroureter versus. 2 mm nonobstructing left renal stones. DS: Summary Hospital Course Reason for hospitalization: Kidney stones, flank pain Hospital Course: The patient was admitted to the hospital for pain control and a cystoscopy. CT of the abdomen/pelvis showed 4 mm right UVJ stone with minimal right hydroureter versus and 2 mm nonobstructing left renal stones. He underwent a cystoscopy, right retrograde, right your atrophy with stone extraction, right stent placement with 4.8 [place] contour with [place] on 12/14. Post procedure he is pain-free and has his significant other at the bedside to drive him home. He does not feel he needs to stay for further pain control. Urinalysis did not show any signs of infection. Patient educated to seek re-evaluation at his PCP if he developed symptoms concerning for a UTI once the hematuria had resolved. Status at Discharge Functional status at discharge: independent ambulation Overall status at discharge: patient is back to baseline Time Spent with Patient Time attestation: Total time spent providing and/or coordinating discharge services: Time spent: Less than 30 minutes Specific discharge activities: Follow-up with urology DS: Admitting Diagnosis Discharge Date 01/10/2025 Admitting Diagnosis Kidney stones, flank pain DS: Discharge Diagnosis Discharge Diagnosis Plan Kidney stones, flank pain Discharged in good condition, ambulatory, A&O x4. Discharge Plan Discharge Attending physician on discharge: Wyatt Tidwell Consulting providers: Olvin Lyles Discharging Clinician: Marguerite Moya Anticipated Discharge Date/Time: 12/14/24 19:33 Patient Disposition: Home Activity: unlimited Diet: as tolerated and regular Discharge Instructions: Please follow-up with Urology as indicated by their service. Seek re-evaluation with your PCP if you develop dysuria, urinary frequency, or urinary hesitancy as you may have a UTI. Your urinalysis today showed no indication that you have a infection. However, due to the procedure they are starting you on prophylactic antibiotics. Please take as prescribed and finish full course. Diarrhea is a common side effect and should resolve with completion of the antibiotics, if persistent, please see care with her PCP. Hematuria post cystoscopy is normal, if persistent or you begin to pass large clots please seek re-evaluation at the emergency department. Patient Instructions: Antibiotic Form Patient Language: Telugu Stand Alone Forms: General Discharge Information Follow-up/Referrals: Olvin Lyles MD [Physician] - Discharge Medications: New tramadol 50 mg tablet 50 mg PO Q6H PRN (Reason: pain) Qty: 20 0RF ondansetron 4 mg tablet,disintegrating 4 mg PO Q8H Qty: 7 0RF oxybutynin chloride 5 mg tablet 5 mg PO BID PRN (Reason: bladder spasms) Qty: 30 0RF Rx Instructions: Take as needed for bladder spasms sulfamethoxazole-trimethoprim [Bactrim DS] 800-160 mg tablet 1 tablet PO Q12H Qty: 6 0RF Continued albuterol sulfate 90 mcg/actuation HFA aerosol inhaler 2 inh inhalation Q4H PRN (Reason: shortness of breath or wheezing) Qty: 8.5 0RF dextroamphetamine-amphetamine [Adderall] 10 mg tablet 10 mg PO .in evening PRN (Reason: ADHD) Qty: 30 0RF dextroamphetamine-amphetamine [Adderall XR] 20 mg capsule,extended release 24hr 20 mg PO DAILY Qty: 30 0RF Date of admission: 12/14/24 08:55 Primary Care Provider: Anita Faulkner Admitting Provider: Wyatt Tidwell Attending physician on admission: Wyatt Tidwell Condition: Stable Quality VTE Prophylaxis VTE prophylaxis: mechanical ordered Hospitalist MIPS Advance Care Plan I have confirmed that the patient's Advanced Care Plan is present, code status is documented, or surrogate decision maker is listed in patient medical record.: Yes Medication Reconciliation I have utilized all available resources to obtain, update and review the patients current medications (includes all prescriptions, OTC, herbals, cannabis, and nutritional supplements).: Yes Heart Failure (Exclusion) Patient has history of Heart Transplant or Left Ventricular Assistive Device?: No IF YES, STOP HERE Heart Failure (Qualifier) Patient has current or prior documentation of LVEF less than or equal to 40%, or mod/servere depressed LVSF?: No IF NO, STOP HERE
== END 2024-12-14 20:20 | disposition home or self-care (01) ==
LOC: ANHED 09:13 → ANH3MEDSUR 09:40
PROVIDERS: Urology; Admitting Provider General Practice; Emergency Provider Emergency Medicine; PCP Nurse Practitioner Family; Visit Provider General Practice
PROC: (CPT 52352; principal; 2024-12-14 16:00)
DX: N20.1 Calculus of ureter (principal); N20.0 Calculus of kidney; F17.200 Nicotine dependence, unspecified, uncomplicated; F90.9 Attention-deficit hyperactivity disorder, unspecified type; J45.909 Unspecified asthma, uncomplicated; E66.9 Obesity, unspecified; Z68.37 Body mass index [BMI] 37.0-37.9, adult; Z79.51 Long term (current) use of inhaled steroids; Z79.899 Other long term (current) drug therapy
CPT/HCPCS: 52352; 52332; 36415; 74176; 74420; 80053; 81001; 82365; 85025; 88300; 96361; 96374; 96375; 96376; 99285; A9270; C1769; C2617; G0378; J0690; J1100; J1171; J1885; J2003; J2250; J2270; J2405; J2704; J3010; J7120; Q9966